=== PATIENT | female | born 1985 | race Two or more races ===

== ENCOUNTER 2016-06-11 19:00 | Emergency (ER) | payer MEDICAID ==
[~2016-06-11] VITALS: Ht 157.5 cm; Wt 49.4 kg
[2016-06-11 19:35] VITALS: BP 111/72
--- NOTE | 2016-06-11 20:11 | Emergency Room Report ---
History of Present Illness General Chief Complaint: Upper Respiratory Illness Source: Patient Present Illness HPI 31 YO Female Pt. presents to the ED c/o cough, nasal congestion , intermittent 6 /10 ROSALES described as frontal pressure, no visual changes, no fevers x 1 week. Pt also reports sore throat, and loss of voice 2 days ago, with mild improvement after hot teas. She denies nausea, vomiting, chills, abdominal pain , constipation, diarrhea. Patient denies neck pain or stiffness. 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 Patient reports mild generalized fatigue. She denies past medical history denies history of asthma or COPD. Denies CP, Palpitations, LOC, AMS, dizziness, Changes in Vision, Sensation, paresthesias, or a sudden severe headache. Allergies: Coded Allergies: No Known Allergies (Unverified , 06/11/16) Patient History Past Medical History: see triage record Past Surgical History: none Pertinent Family History: none Last Menstrual Period: 05/21/16 Now: No Reviewed Nursing Documentation: PMH: Agreed, PSxH: Agreed Nursing Documentation-PMH Past Medical History: No Stated History Review of Systems All Other Systems: negative except mentioned in HPI Physical Exam Vital Signs Date Time Temp Pulse Resp B/P Pulse Ox O2 Delivery O2 Flow Rate FiO2 06/11/16 19:15 98.8 81 14 111/72 99 Room Air Sp02 EP Interpretation: reviewed, normal General Appearance: well appearing, no apparent distress, alert, GCS 15, non- toxic Head: normocephalic, atraumatic Eyes: bilateral eye PERRL, bilateral eye normal inspection ENT: hearing grossly normal, normal pharynx, no angioedema, normal voice, TMs + canals normal, uvula midline, moist mucus membranes, nasal congestion - clear rhinorrhea noted bilaterally Neck: full range of motion, no meningismus, no bony tend, supple/symm/no masses Respiratory: chest non-tender, lungs clear, normal breath sounds, no rhonchi, no respiratory distress, no retraction, no accessory muscle use, no wheezing, speaking full sentences Cardiovascular #1: regular rate, rhythm, no edema, normal capillary refill Gastrointestinal: normal bowel sounds, non tender, soft, no guarding, no rebound Rectal: deferred Genitourinary: normal inspection, no CVA tenderness Musculoskeletal: back normal, gait/station normal, normal range of motion, non- tender, no calf tenderness Neurologic: alert, oriented x3, responsive, motor strength/tone normal, sensory intact, speech normal Psychiatric: judgement/insight normal, memory normal, mood/affect normal, no suicidal/homicidal ideation Skin: normal color, no rash, warm/dry, well hydrated Lymphatic: no adenopathy Medical Decision Making PA Attestation Dr. linton is my supervising Physician whom patient management has been discussed with. Diagnostic Impression: Primary Impression: Viral upper respiratory tract infection with cough Additional Impression: Nasal congestion with rhinorrhea ER Course Pt. presents to the ED c/o cough, nasal congestion , intermittent ROSALES, no fevers , no neck symptoms x 1 week. Ddx considered but are not limited to URI, pneumonia, PE, strep pharyngitis, meningitis. Vital signs: Pt. is afebrile, the remaining VS are WNL H&PE are most consistent with URI- no meningeal signs, oropharynx is not involved, no evidence of bacterial infection at this time. Pt. does not meet [facility] Criteria. ORDERS: none required at this time, the diagnosis is clinical ED INTERVENTIONS: None required at this time. --PT. EDUCATION: Discussed antibiotic resistance with inappropriate prescribing of antibiotics for viral illnesses. Discussed signs and symptoms to indicate viral illness versus bacterial illness. encouraged proper handwashing. DISCHARGE: At this time pt. is stable for d/c to home. Will provide printed patient care instructions, and any necessary prescriptions. Care plan and follow up instructions have been discussed with the patient prior to discharge. Last Vital Signs Date Time Temp Pulse Resp B/P Pulse Ox O2 Delivery O2 Flow Rate FiO2 06/11/16 19:35 98.8 81 14 111/72 99 Room Air Disposition: HOME, SELF-CARE Condition: Stable Scripts Loratadine (CLARITIN) 10 Mg Tablet 10 MG ORAL DAILY, #30 TAB Prov: Huma Garg P.A. 06/11/16 Guaifenesin (Guaifenesin) 1,200 Mg Tab.er.12h 1200 MG PO BID for 5 Days, #10 TAB Prov: Huma Garg P.A. 06/11/16 Acetaminophen* (TYLENOL EXTRA STRENGTH*) 500 Mg Tablet 500 MG ORAL Q6H, #30 TAB 0 Refills Prov: Huma Garg 06/11/16 Codeine/Promethazine Hcl* (PROMETHAZINE-CODEINE SYRUP*) 118 Ml Syrup 5 ML ORAL Q6H Y for For Cough, #118 ML 0 Refills Prov: Huma Garg 06/11/16 Referrals: [facility] (PCP) Patient Instructions: Laryngitis, [id number], Upper Respiratory Infection, Adult, Viral Respiratory Infection Additional Instructions: Take medications as directed. Follow up with PCP in 3-5 days Return sooner to ED if new symptoms occur, or current symptoms become worse. Do not drink alcohol, drive, or operate heavy machinery while taking Cough Syrup as this may cause drowsiness. Huma Garg Jun 11, 2016 20:11
[2016-06-11] MEDS ORDERED: TYLENOL EXTRA500 MG ORAL (20:13)
[2016-06-11] MEDS ORDERED: CLARITIN10 MG ORAL (20:13)
[2016-06-11] MEDS ORDERED: PROMETHAZINE-C118 M1 ORAL (20:13)
[2016-06-11] MEDS ORDERED: GUAIFENESIN1200 MG PO (20:13)
[2016-06-11 20:23] VITALS: BP 112/74
== END 2016-06-11 20:24 | disposition home or self-care (01) ==
LOC: EMR 19:54
DX: J06.9 Acute upper respiratory infection, unspecified (principal); R09.81 Nasal congestion; J34.89 Other specified disorders of nose and nasal sinuses
CPT/HCPCS: 99282

== ENCOUNTER 2018-12-23 20:29 | Emergency (ER) | payer MEDICAID ==
[~2018-12-23] VITALS: Ht 157.5 cm; Wt 49.9 kg
[~2018-12-23 20:29] MED LIST: CLARITIN10 MG ORAL; GUAIFENESIN1200 MG PO; PROMETHAZINE-C118 M1 ORAL; TYLENOL EXTRA500 MG ORAL
[2018-12-23 20:35] VITALS: BP 100/69
--- NOTE | 2018-12-23 20:36 | NUR ---
ED Nurse Note: Dee walked into ED c/o fever and cough for the past 2 weeks, at time of arrival patient presents with a 101.1 oral temp, states that shes been having night sweats as well, states that these happened after travelling to [place]. patient is alert and oriented x4, patient was placed in TRAUMA room for isolation precautions. IV started on left ac 20 gauge
[2018-12-23] MEDS ORDERED: cefTRIAXone 2 GM in NS 110 ML IV SCH (20:45)
--- NOTE | 2018-12-23 21:31 | Emergency Room Report ---
History of Present Illness General Chief Complaint: Fever Source: Patient Present Illness HPI 33-year-old female with no significant past medical history here complaining of 2 weeks of intermittent fever ranging between 100 203 F. Patient reports that she traveled to [place] and her symptoms started while she was in [place]. Denies any exposure to patients that are high risk for tuberculosis. Denies any cough , hemoptysis, congestion, abdominal pain, nausea vomiting diarrhea. Denies any photosensitivity, neck stiffness, and reports that she has been having a 5 out of 10 headache for the past few days without any injury. Denies dizziness and vertigo. Denies recent URI symptoms. Denies urinary symptoms. Patient reports that she used to put no unpasteurized milk in her tea every day while she was in [place] for the past 2 weeks. Patient denies any sexual activity in the past 2 weeks. Reports that her menses are regular and her last menstrual period was on December 10 2018. Patient stable, in no apparent distress, and reports that her fever is worse at night she wakes up due to night sweats denies having any nightmares. She reports that in the past few days she has been having more fever the other day x2 as opposed to having it only at nighttime in the past. Denies any unwanted weight loss. She reports that she had a recent immunization prior to going to [facility] however does not recall which ones. Denies taking any malaria pills. Allergies: Coded Allergies: No Known Allergies (Unverified , 06/11/16) Patient History Past Medical History: see triage record Past Surgical History: unable to obtain Pertinent Family History: none Last Menstrual Period: 12/10/18 Now: No Immunizations: UTD Reviewed Nursing Documentation: PMH: Agreed; PSxH: Agreed Nursing Documentation-PMH Past Medical History: No Stated History Review of Systems All Other Systems: negative except mentioned in HPI Physical Exam Vital Signs Date Time Temp Pulse Resp B/P (MAP) Pulse Ox O2 Delivery O2 Flow Rate FiO2 12/23/18 20:31 103.1 98 16 100/69 (79) 93 Room Air Sp02 EP Interpretation: reviewed, normal General Appearance: normal inspection, well appearing, no apparent distress Head: normocephalic, atraumatic Eyes: bilateral eye normal inspection, bilateral eye PERRL ENT: normal ENT inspection, hearing grossly normal, normal pharynx, no angioedema Neck: normal inspection, full range of motion, supple, thyroid normal, no meningismus, no bony tend, no carotid bruits Respiratory: normal inspection, chest non-tender, lungs clear, normal breath sounds, no rhonchi, no respiratory distress Cardiovascular #1: normal inspection, normal peripheral pulses, regular rate, rhythm, no edema, no gallop, no murmur, normal capillary refill Cardiovascular #2: 2+ dorsalis pedis (R), 2+ dorsalis pedis (L) Gastrointestinal: normal inspection, non tender, soft Rectal: deferred Genitourinary: no CVA tenderness Musculoskeletal: back normal Neurologic: normal inspection, alert, oriented x3 Psychiatric: normal inspection, judgement/insight normal Skin: no rash, palpation normal, normal color Lymphatic: normal inspection, no adenopathy Medical Decision Making PA Attestation All diagnoses and treatment plans were reviewed and discussed with my supervising physician Dr. Ratliff Diagnostic Impression: Primary Impression: Fever with chills Additional Impression: UTI (urinary tract infection) ER Course 33-year-old female with no significant past medical history here complaining of 2 weeks of intermittent fever ranging between 100 203 F. Patient reports that she traveled to [facility] and her symptoms started while she was in [facility]. Denies any exposure to patients that are high risk for tuberculosis. Denies any cough , hemoptysis, congestion, abdominal pain, nausea vomiting diarrhea. Denies any photosensitivity, neck stiffness, and reports that she has been having a 5 out of 10 headache for the past few days without any injury. Denies dizziness and vertigo. Denies recent URI symptoms. Denies urinary symptoms. Patient reports that she used to put no unpasteurized milk in her tea every day while she was in [place] for the past 2 weeks. Patient denies any sexual activity in the past 2 weeks. Reports that her menses are regular and her last menstrual period was on December 10 2018. Patient stable, in no apparent distress, and reports that her fever is worse at night she wakes up due to night sweats denies having any nightmares. She reports that in the past few days she has been having more fever the other day x2 as opposed to having it only at nighttime in the past. Denies any unwanted weight loss. She reports that she had a recent immunization prior to going to [facility] however does not recall which ones. Denies taking any malaria pills. Ddx considered but are not limited to: bronchitis, PNA, tuberculosis, sepsis, infection secondary to unpasteurized milk Vital signs: are WNL, pt. is afebrile H&PE are most consistent with:UTI ORDERS: Sepsis work-up, keflex ED INTERVENTIONS: Ceftriaxone IV, NS bolus My discharge: Patient stable at time of discharge patient to follow-up with a primary care provider if worsening symptoms return to the emergency room at this time no further indication is needed to keep the patient the emergency room or admit the patient as patient has a normal white blood count, no other secondary symptoms, and this is stable. Patient had a normal chest x-ray not suggesting tuberculosis, blood cultures was done and pending however patient's UTI is most likely the source of her fever. EKG Diagnostic Results Rate: normal Rhythm: NSR ST Segments: no acute changes Chest X-Ray Diagnostic Results Chest X-Ray Diagnostic Results : Chest X-Ray Ordered: Yes # of Views/Limited/Complete: 1 View Indication: Other EP Interpretation: Yes PA Xray: Interpretation reviewed, by supervising MD, and agrees with findings. Interpretation: no consolidation, no effusion, no pneumothorax, other - no TB Impression: No acute disease Electronically Signed by: Trent Varela PA-C Last Vital Signs Date Time Temp Pulse Resp B/P (MAP) Pulse Ox O2 Delivery O2 Flow Rate FiO2 12/23/18 20:31 103.1 98 16 100/69 (79) 93 Room Air Disposition: HOME, SELF-CARE Condition: Stable Patient Instructions: Fever, Adult, Urinary Tract Infection, [id number] Additional Instructions: Follow-up with your primary care provider if worsening symptoms return to the emergency room take medication as directed Trent Andrade Dec 23, 2018 21:31
[2018-12-23 21:43] LABS: BASOPHILS % (AUTO) 0.4 % (0.0-2.0); HEMATOCRIT 40.3 % (37.0-47.0); LYMPHOCYTES % (AUTO) 14.6 % (20.0-45.0); MEAN CORPUSCULAR VOLUME 77 FL (80-99); MONOCYTES % (AUTO) 7.9 % (1.0-10.0); NEUTROPHILS % (AUTO) 77.1 % (45.0-75.0); PLATELET COUNT 202 K/UL (150-450); RED BLOOD COUNT 5.24 M/UL (4.20-5.40); RED CELL DISTRIBUTION WIDTH 12.1 % (11.6-14.8); WHITE BLOOD COUNT 6.5 K/UL (4.8-10.8)
[2018-12-23 21:45] LABS: ANION GAP 9 mmol/L (5-15); BLOOD UREA NITROGEN 10 mg/dL (7-18); CALCIUM 8.3 MG/DL (8.5-10.1); CARBON DIOXIDE 26 MMOL/L (21-32); CHLORIDE 99 MMOL/L (98-107); CREATININE 0.9 MG/DL (0.55-1.30); POTASSIUM 3.5 MMOL/L (3.5-5.1); SODIUM 134 MMOL/L (136-145)
[2018-12-23 21:58] LABS: ALANINE AMINOTRANSFERASE 53 U/L (12-78); ALBUMIN 3.3 G/DL (3.4-5.0); ALBUMIN/GLOBULIN RATIO 0.9 (1.0-2.7); ALKALINE PHOSPHATASE 62 U/L (46-116); ASPARTATE AMINO TRANSFERASE 27 U/L (15-37); BILIRUBIN,TOTAL 0.4 MG/DL (0.2-1.0); CKMB < 0.5 NG/ML (0.0-3.6); CREATINE KINASE 72 U/L (26-308)
[2018-12-23 22:39] LABS: APPEARANCE,URINE CLEAR; BILIRUBIN, URINE NEGATIVE (NEGATIVE); COLOR,URINE PALE YELLOW; GLUCOSE, URINE (UA) NEGATIVE (NEGATIVE); KETONES,URINE 1+ (NEGATIVE); LEUKOCYTE ESTERASE ,URINE 2+ (NEGATIVE); NITRITE,URINE NEGATIVE (NEGATIVE); PH,URINE 7 (4.5-8.0); PROTEIN,URINE NEGATIVE (NEGATIVE); UROBILINOGEN,URINE NORMAL MG/DL (0.0-1.0)
[2018-12-23 22:45] VITALS: BP 114/72
--- NOTE | 2018-12-23 22:45 | NUR ---
ER DISCHARGE NOTE: Patient is cleared to be discharged per ERMD, pt is aox4, on room air, with stable vital signs. pt was given dc and prescription instructions, pt was able to verbalize understanding, pt id band and iv site removed without complications. pt is able to ambulate with steady gait. pt took all belongings.
[2018-12-23] MEDS ORDERED: CEPHALEXIN500 MG ORAL (22:58)
--- NOTE | 2018-12-24 10:24 | Diagnostic Imaging Report ---
Indication: Chest pain Comparison: None A single view chest radiograph was obtained. Findings: Cardiomediastinal appearance is within normal limits for age. The lungs are clear. Pulmonary vascularity is appropriate. The diaphragmatic contour is smooth and costophrenic angles are sharp. No pleural effusions are identified. The bones are unremarkable. Impression: No acute findings
[2018-12-24] MEDS ORDERED: CEPHALEXIN250 MG ORAL (14:24)
--- NOTE | 2018-12-25 18:27 | Cardiology Report ---
APPROVED REPORT EKG Measurement Heart [id number] Normal sinus rhythm Normal ECG
== END 2018-12-23 22:45 | disposition home or self-care (01) ==
LOC: EMR 21:20
DX: N39.0 Urinary tract infection, site not specified (principal); R50.9 Fever, unspecified
CPT/HCPCS: 36415; 36600; 71045; 80053; 81003; 82550; 82553; 82803; 83605; 84443; 84484; 85025; 85610; 85730; 86850; 86900; 86901; 87040; 87086; 87181; 93005; 96365; 96366; 99284; J0696

== ENCOUNTER 2018-12-24 13:46 | Emergency (ER) | payer MEDICAID ==
[~2018-12-24] VITALS: Ht 157.5 cm; Wt 49.9 kg
[~2018-12-24 13:46] MED LIST changes: +CEPHALEXIN500 MG ORAL
[2018-12-24 14:15] VITALS: BP 94/57
[2018-12-24] MEDS ORDERED: cefTRIAXone 1 GM in NS 55 ML IVPB ONE (14:15)
--- NOTE | 2018-12-24 14:15 | NUR ---
ED Nurse Note: Patient presents to ER due to + blood culture. Seen by us yesterday, dx with UTI and sent home with oral antibiotics. Patient filled prescription today and started taking it this morning. Patient c/o feeling tired. Reports no cough, rash, diarrhea or pain. Patient returned from [place] yesterday. Reports no urinary problem. Patient states feeling weak and not eating well for the past few days. Patient is awake, alert, oriented x 4. Regular, unlabored breathing noted. Placed patient on video production assistant. No ectopy noted. Bed in lowest position.
[2018-12-24] MEDS ORDERED: CEPHALEXIN250 MG ORAL (14:24)
[2018-12-24] MEDS ORDERED: Acetaminophen 500mg (ES) tab ORAL ONE (15:00)
--- NOTE | 2018-12-24 15:05 | Diagnostic Imaging Report ---
Indication: Dyspnea Comparison: 12/23/2018 A single view chest radiograph was obtained. Findings: Cardiomediastinal appearance is within normal limits for age. The lungs are clear. Pulmonary vascularity is appropriate. The diaphragmatic contour is smooth and costophrenic angles are sharp. No pleural effusions are identified. The bones are unremarkable. Impression: No acute findings
[2018-12-24 15:12] LABS: BASOPHILS % (AUTO) 0.8 % (0.0-2.0); HEMATOCRIT 39.6 % (37.0-47.0); HEMOGLOBIN 12.7 G/DL (12.0-16.0); LYMPHOCYTES % (AUTO) 17.4 % (20.0-45.0); MEAN CORPUSCULAR VOLUME 76 FL (80-99); MONOCYTES % (AUTO) 6.3 % (1.0-10.0); NEUTROPHILS % (AUTO) 75.5 % (45.0-75.0); PLATELET COUNT 166 K/UL (150-450); RED BLOOD COUNT 5.24 M/UL (4.20-5.40); RED CELL DISTRIBUTION WIDTH 14.2 % (11.6-14.8); WHITE BLOOD COUNT 5.7 K/UL (4.8-10.8)
[2018-12-24 15:13] LABS: APPEARANCE,URINE CLEAR; BILIRUBIN, URINE NEGATIVE (NEGATIVE); GLUCOSE, URINE (UA) NEGATIVE (NEGATIVE); KETONES,URINE 3+ (NEGATIVE); LEUKOCYTE ESTERASE ,URINE 1+ (NEGATIVE); NITRITE,URINE NEGATIVE (NEGATIVE); PH,URINE 5 (4.5-8.0); PROTEIN,URINE NEGATIVE (NEGATIVE); UROBILINOGEN,URINE NORMAL MG/DL (0.0-1.0)
[2018-12-24 15:20] LABS: COLOR,URINE YELLOW
[2018-12-24 15:24] LABS: ANION GAP 9 mmol/L (5-15); BLOOD UREA NITROGEN 8 mg/dL (7-18); CALCIUM 8.2 MG/DL (8.5-10.1); CARBON DIOXIDE 26 MMOL/L (21-32); CHLORIDE 101 MMOL/L (98-107); CREATININE 0.9 MG/DL (0.55-1.30); SODIUM 136 MMOL/L (136-145)
[2018-12-24 15:28] LABS: ALANINE AMINOTRANSFERASE 44 U/L (12-78); ALBUMIN 3.2 G/DL (3.4-5.0); ALBUMIN/GLOBULIN RATIO 0.9 (1.0-2.7); ALKALINE PHOSPHATASE 57 U/L (46-116); ASPARTATE AMINO TRANSFERASE 28 U/L (15-37); BILIRUBIN,TOTAL 0.5 MG/DL (0.2-1.0)
--- NOTE | 2018-12-24 15:58 | NUR ---
ED Nurse Note: Martin Martinez-spouse .
[2018-12-24 16:05] VITALS: BP 94/60
--- NOTE | 2018-12-24 16:51 | Emergency Room Report ---
History of Present Illness General Chief Complaint: Fever Source: Patient Present Illness HPI 33-year-old female presents ED for evaluation. Patient was called back for positive blood culture. Was seen yesterday here for chills and fever. Had UTI. Was discharged with antibiotics. Blood cultures gram-negative rods. Patient states she still has a fever and feels weak. Notes chills. Denies nausea or vomiting. Only took 1 dose of antibiotics so far. No other aggravating relieving factors. Denies any other associated symptoms Allergies: Coded Allergies: No Known Allergies (Unverified , 06/11/16) Patient History Past Medical History: none Past Surgical History: none Pertinent Family History: none Social History: Denies: smoking, alcohol use, drug use Last Menstrual Period: 12/10/2018 Now: No Immunizations: UTD Reviewed Nursing Documentation: PMH: Agreed; PSxH: Agreed Nursing Documentation-PMH Past Medical History: No Stated History Review of Systems All Other Systems: negative except mentioned in HPI Physical Exam Vital Signs Date Time Temp Pulse Resp B/P (MAP) Pulse Ox O2 Delivery O2 Flow Rate FiO2 12/24/18 13:54 102.9 105 20 96/54 (68) 96 Room Air Sp02 EP Interpretation: reviewed, normal General Appearance: no apparent distress, alert, GCS 15, non-toxic Head: normocephalic, atraumatic Eyes: bilateral eye normal inspection, bilateral eye PERRL ENT: hearing grossly normal, normal pharynx, no angioedema, normal voice Neck: full range of motion, supple/symm/no masses Respiratory: chest non-tender, lungs clear, normal breath sounds, speaking full sentences Cardiovascular #1: regular rate, rhythm, no edema Cardiovascular #2: 2+ carotid (R), 2+ carotid (L), 2+ radial (R), 2+ radial (L) , 2+ dorsalis pedis (R), 2+ dorsalis pedis (L) Gastrointestinal: normal bowel sounds, non tender, soft, non-distended, no guarding, no rebound Rectal: deferred Genitourinary: normal inspection, no CVA tenderness Musculoskeletal: back normal, gait/station normal, normal range of motion, non- tender Neurologic: alert, oriented x3, responsive, motor strength/tone normal, sensory intact, speech normal Psychiatric: judgement/insight normal, memory normal, mood/affect normal, no suicidal/homicidal ideation Reflexes: 3+ bicep (R), 3+ bicep (L), 3+ tricep (R), 3+ tricep (L), 3+ knee (R) , 3+ knee (L) Lymphatic: no adenopathy Medical Decision Making Diagnostic Impression: Primary Impression: UTI (urinary tract infection) Qualified Codes: N39.0 - Urinary tract infection, site not specified Additional Impression: Positive blood culture ER Course Hospital Course 33-year-old female presenting to ED with generalized weakness, fever. recalled for + blood cx Differential diagnoses include: Pneumonia, UTI, sepsis, dehydration Clinical course Patient placed on stretcher. On monitoring engineer with stable vitals are ED course. After initial history and physical, I ordered labs, IV fluids, EKG, chest x-ray, blood cultures, UA. Labs - electrolytes ok, no leukocytosis, hb/hct stable, lactic ok, UA + bacteria CXR - no acute process Abx given. IVFs given. Given positive blood cultures patient requires IV antibiotics and admission because of insurance patient will be transferred I feel this is a highly complex case requiring extensive working including EKG/ Rhythm strip, Xray/CT/US, Blood/urine lab work, repeat exams while in ED, and administration of strong opiates/narcotics for pain control, admission to hospital or close patient follow up. Diagnosis - UTI, positive blood culture transferred in serious condition Labs Test 12/24/18 14:40 White Blood Count 5.7 K/UL (4.8-10.8) Red Blood Count 5.24 M/UL (4.20-5.40) Hemoglobin 12.7 G/DL (12.0-16.0) Hematocrit 39.6 % (37.0-47.0) Mean Corpuscular Volume 76 FL (80-99) Mean Corpuscular Hemoglobin 24.2 PG (27.0-31.0) Mean Corpuscular Hemoglobin Concent 32.1 G/DL (32.0-36.0) Red Cell Distribution Width 14.2 % (11.6-14.8) Platelet Count 166 K/UL (150-450) Mean Platelet Volume 6.6 FL (6.5-10.1) Neutrophils (%) (Auto) 75.5 % (45.0-75.0) Lymphocytes (%) (Auto) 17.4 % (20.0-45.0) Monocytes (%) (Auto) 6.3 % (1.0-10.0) Eosinophils (%) (Auto) 0.0 % (0.0-3.0) Basophils (%) (Auto) 0.8 % (0.0-2.0) Urine Color Yellow Urine Appearance Clear Urine pH 5 (4.5-8.0) Urine Specific [place] 1.015 (1.005-1.035) Urine Protein Negative (NEGATIVE) Urine Glucose (UA) Negative (NEGATIVE) Urine Ketones 3+ (NEGATIVE) Urine Blood 4+ (NEGATIVE) Urine Nitrite Negative (NEGATIVE) Urine Bilirubin Negative (NEGATIVE) Urine Urobilinogen Normal MG/DL (0.0-1.0) Urine Leukocyte Esterase 1+ (NEGATIVE) Urine RBC 5-10 /HPF (0 - 2) Urine WBC 2-4 /HPF (0 - 2) Urine Squamous Epithelial Cells Few /LPF (NONE/OCC) Urine Bacteria Few /HPF (NONE) Urine Yeast Few /HPF (NONE) Urine HCG, Qualitative Negative (NEGATIVE) Sodium Level 136 MMOL/L (136-145) Potassium Level 4.0 MMOL/L (3.5-5.1) Chloride Level 101 MMOL/L (98-107) Carbon Dioxide Level 26 MMOL/L (21-32) Anion Gap 9 mmol/L (5-15) Blood Urea Nitrogen 8 mg/dL (7-18) Creatinine 0.9 MG/DL (0.55-1.30) Estimat Glomerular Filtration Rate > 60 mL/min (>60) Glucose Level 126 MG/DL (74-106) Lactic Acid Level 0.70 mmol/L (0.4-2.0) Calcium Level 8.2 MG/DL (8.5-10.1) Total Bilirubin 0.5 MG/DL (0.2-1.0) Aspartate Amino Transf (AST/SGOT) 28 U/L (15-37) Alanine Aminotransferase (ALT/SGPT) 44 U/L (12-78) Alkaline Phosphatase 57 U/L (46-116) Total Protein 6.9 G/DL (6.4-8.2) Albumin 3.2 G/DL (3.4-5.0) Globulin 3.7 g/dL Albumin/Globulin Ratio 0.9 (1.0-2.7) Chest X-Ray Diagnostic Results Chest X-Ray Diagnostic Results : Chest X-Ray Ordered: Yes # of Views/Limited/Complete: 1 View Indication: Other EP Interpretation: Yes Interpretation: no consolidation, no effusion, no pneumothorax, no acute cardiopulmonary disease Impression: No acute disease Electronically Signed by: Electronically signed by Matt Liang MD Last Vital Signs Date Time Temp Pulse Resp B/P (MAP) Pulse Ox O2 Delivery O2 Flow Rate FiO2 12/24/18 16:05 100.3 91 23 94/60 100 Room Air Status: improved Disposition: [facility] Condition: Serious Referrals: [facility] (PCP) Matt Liang MD Dec 24, 2018 16:51
--- NOTE | 2018-12-24 17:00 | NUR ---
ED Nurse Note: Spoke with Elke STANTON from [facility] to give report. Picked up by 2 EMT via citlaly with NS 1L @200 ml/hr with right AC 20g patent and infusing well. Alert and oriented x4, verbally responsive. No SOB. Breathing even and unlabored. ID band was removed. All belongings given to patient.
[2018-12-24 17:21] VITALS: BP 100/75
== END 2018-12-24 17:00 | disposition short-term general hospital (02) ==
LOC: EMR 15:08
DX: N39.0 Urinary tract infection, site not specified (principal); R53.1 Weakness
CPT/HCPCS: 36415; 71045; 80053; 81003; 81025; 83605; 85025; 87040; 87086; 96361; 96365; 99285; J0696

== ENCOUNTER 2019-09-20 11:15 | Emergency (ER) | payer MEDICAID ==
[~2019-09-20] VITALS: Ht 157.5 cm; Wt 52.2 kg
[~2019-09-20 11:15] MED LIST changes: +CEPHALEXIN250 MG ORAL
--- NOTE | 2019-09-20 11:32 | NUR ---
ED Nurse Note: Patient walked in to ER from home c/o right ear pain since this morning. Administered over the counter ear meds (afew drops) but it was painful. Pt is calmly sitting in the room. VVS.
[2019-09-20 11:36] VITALS: BP 111/64
--- NOTE | 2019-09-20 11:43 | NUR ---
ED Nurse Note: Dr. Barr in the room.
[2019-09-20] MEDS ORDERED: OFLOXACIN5 ML RIGHT EAR (11:53)
[2019-09-20 11:56] VITALS: BP 106/65
--- NOTE | 2019-09-20 11:56 | NUR ---
ED Nurse Note: Pt cleared by health care Provider for discharge. DC instructions/prescription was given and explained to pt and verbalized understanding of teachings. All medical deviecs such as ID band removed. Pt is AAO x4, ambulatory and left with all personal belongings.
--- NOTE | 2019-09-21 16:07 | Emergency Room Report ---
History of Present Illness General Chief Complaint: Earache Source: Patient Present Illness HPI 34-year-old female presents complaining of right ear pain. Started this morning. Pain is dull, 7 out of 10, nonradiating. Denies fevers or chills. Denies cough. States that whenever she gets water in her ear she gets an infection. Denies sick contacts or recent travel. Tried [id number] drops which did not help. No other aggravating relieving factors. Denies any other associated symptoms Allergies: Coded Allergies: No Known Allergies (Unverified , 06/11/16) COVID-19 Screening Contact w/high risk pt: No Recent Travel to affected area: No Experienced COVID-19 symptoms?: No Patient History Past Medical History: none Past Surgical History: none Pertinent Family History: none Social History: Denies: smoking, alcohol use, drug use Last Menstrual Period: 09/13/2019 Now: No Immunizations: UTD Reviewed Nursing Documentation: PMH: Agreed; PSxH: Agreed Review of Systems All Other Systems: negative except mentioned in HPI Physical Exam Vital Signs Date Time Temp Pulse Resp B/P (MAP) Pulse Ox O2 Delivery O2 Flow Rate FiO2 09/20/19 11:27 98.1 65 16 111/64 (80) 99 Room Air Sp02 EP Interpretation: reviewed, normal General Appearance: no apparent distress, alert, GCS 15, non-toxic Head: normocephalic, atraumatic Eyes: bilateral eye normal inspection, bilateral eye PERRL ENT: hearing grossly normal, normal pharynx, no angioedema, normal voice, other - R ear canal swollen/erythematous. R TM clear Neck: full range of motion, supple, no meningismus, supple/symm/no masses Respiratory: normal inspection Cardiovascular #1: normal inspection Gastrointestinal: normal inspection Rectal: deferred Genitourinary: no CVA tenderness Musculoskeletal: normal inspection Neurologic: alert, motor strength/tone normal, oriented x3, sensory intact, responsive, speech normal Psychiatric: normal inspection Skin: no rash Lymphatic: normal inspection Medical Decision Making Diagnostic Impression: Primary Impression: Otitis externa Qualified Codes: H60.501 - Unspecified acute noninfective otitis externa, right ear ER Course Hospital Course 34-year-old F presents to ED with pain R ear. Differential diagnoses include: TM perforation, otitis externa, otitis media Clinical course Patient placed on stretcher. After initial history, physical exam reveals a female in no acute distress. There is swelling and erythema to the right ear canal. Tender to palpation. Right TM unremarkable. Good light reflex noted. I discussed findings with patient. Safe for discharge with close outpatient follow-up. I will provide referrals Diagnosis - otitis externa Stable and discharged to home with Rx ofloxacin otic. Followup with PMD. Return to ED if symptoms recur or worsen Last Vital Signs Date Time Temp Pulse Resp B/P (MAP) Pulse Ox O2 Delivery O2 Flow Rate FiO2 09/20/19 11:56 97.9 87 18 106/65 98 Room Air Status: improved Disposition: HOME, SELF-CARE Condition: Stable Scripts Ofloxacin (OFLOXACIN) 5 Ml Drops 10 DROP RIGHT EAR DAILY for 7 Days, ML Prov: Matt Liang MD 09/20/19 Referrals: NON PHYSICIAN (PCP) Luis Felipe Collins [facility] Patient Instructions: Otitis Externa, [id number] Matt Liang MD September 21, 2019 16:07
== END 2019-09-20 11:56 | disposition home or self-care (01) ==
LOC: EMR 11:45
DX: H60.501 Unspecified acute noninfective otitis externa, right ear (principal)
CPT/HCPCS: 99282